=== PATIENT | male | born 1980 | race Caucasian/White ===

== ENCOUNTER 2020-07-18 00:52 | Emergency (ER) | payer SELFPAY ==
[~2020-07-18] VITALS: Ht 182.9 cm; Wt 115.0 kg
--- NOTE | 2020-07-18 01:14 | NUR ---
upon learning of pts exposure to malathion pt was taken outside to decon shower and washed before bringing him into main ER. posion control was contacted - see note by [employer]
[2020-07-18 01:21] VITALS: BP 134/78
--- NOTE | 2020-07-18 02:09 | NUR ---
posion control recontacted and recommends observation for 12 hrs post exposure. MD aware
== END 2020-07-18 02:31 | disposition home or self-care (01) ==
LOC: ER 00:53
DX: T75.89XA Other specified effects of external causes, initial encounter (principal); F15.90 Other stimulant use, unspecified, uncomplicated; Z72.89 Other problems related to lifestyle; X58.XXXA Exposure to other specified factors, initial encounter; Y93.89 Activity, other specified; Y92.89 Other specified places as the place of occurrence of the external cause; Y99.8 Other external cause status
CPT/HCPCS: 93005; 99283